=== PATIENT | male | born 1985 | race Two or more races ===

== ENCOUNTER 2016-10-03 00:11 | Emergency (ER) | payer SELFPAY ==
[~2016-10-03] VITALS: Ht 170.2 cm; Wt 65.1 kg
[2016-10-03 01:42] VITALS: BP 122/80
== END 2016-10-03 01:43 | disposition home or self-care (01) ==
LOC: EME 00:11
DX: F43.21 Adjustment disorder with depressed mood (principal); S10.91XA Abrasion of unspecified part of neck, initial encounter; X78.1XXA Intentional self-harm by knife, initial encounter; Z72.0 Tobacco use
CPT/HCPCS: 90837; 99281; 99284